=== PATIENT | female | born 1970 | race Caucasian/White ===

== ENCOUNTER 2018-01-08 21:30 | Emergency (ER) | payer MEDICARE, MEDICAID ==
[~2018-01-08] VITALS: Ht 162.6 cm; Wt 82.1 kg
[2018-01-08] MEDS ORDERED: LEXAPRO5 MG PO (21:38)
[2018-01-08] MEDS ORDERED: XANAX 0.5 MG0.5 MG PO (21:39)
[2018-01-08] MEDS ORDERED: VITAMIN D400 UNIT PO (21:39)
[2018-01-08] MEDS ORDERED: HYDRALAZINE 5050 MG PO (23:44)
[2018-01-08] MEDS ORDERED: VISTARIL50 MG PO (23:48)
[2018-01-08 23:59] VITALS: BP 135/95
== END 2018-01-09 00:01 | disposition home or self-care (01) ==
LOC: M.ERS 21:30
DX: G47.00 Insomnia, unspecified (principal); F17.210 Nicotine dependence, cigarettes, uncomplicated; F41.9 Anxiety disorder, unspecified; E03.9 Hypothyroidism, unspecified; Z90.49 Acquired absence of other specified parts of digestive tract